=== PATIENT | female | born 1970 | race African-American/Black ===

== ENCOUNTER 2017-12-01 16:41 | Inpatient (IN) | payer OTHER ==
[2017-12-01 17:16] LABS: ADD MAN DIFF? NO
[2017-12-01 17:20] LABS: BASO % 1 % (0-3); EOS # 0.1 x10^3/uL (0.0-0.7); EOS % 2 % (0-3); HEMATOCRIT 42.3 % (36.0-47.0); HEMOGLOBIN 14.2 g/dL (12.0-15.5); LYMPH # 2.6 x10^3/uL (1.0-4.8); LYMPH % 42 % (24-48); MEAN CORPUSCULAR HEMOGLOBIN 31 pg (25-35); MEAN CORPUSCULAR HGB CONC 34 g/dL (31-37); MEAN CORPUSCULAR VOLUME 92 fL (79-100); MONO # 0.3 x10^3/uL (0.0-1.1); MONO % 4 % (0-9); NEUT # 3.2 x10^3uL (1.8-7.7); NEUT % 51 % (31-73); PLATELET COUNT 234 x10^3/uL (140-400); RED BLOOD COUNT 4.58 x10^6/uL (3.50-5.40); RED CELL DISTRIBUTION WIDTH 14.9 % (11.5-14.5); WHITE BLOOD COUNT 6.2 x10^3/uL (4.0-11.0)
[2017-12-01 17:28] LABS: INR 1.1 (0.8-1.1); PROTHROMBIN TIME PATIENT 13.7 SEC (11.7-14.0)
[2017-12-01 17:33] LABS: ANION GAP 9 (6-14); BLOOD UREA NITROGEN 11 mg/dL (7-20); CALCIUM 8.6 mg/dL (8.5-10.1); CARBON DIOXIDE 30 mmol/L (21-32); CHLORIDE 105 mmol/L (98-107); GFR 59.2; GLUCOSE 110 mg/dL (70-99); POTASSIUM 3.4 mmol/L (3.5-5.1); SODIUM 144 mmol/L (136-145)
[2017-12-01 17:40] LABS: ALBUMIN 3.5 g/dL (3.4-5.0); ALK PHOS 102 U/L (46-116); ALT (SGPT) 35 U/L (14-59); AST (SGOT) 21 U/L (15-37); DIRECT BILIRUBIN 0.1 mg/dL (0.0-0.2); LIPASE 105 U/L (73-393); MAGNESIUM 1.9 mg/dL (1.8-2.4); TOTAL BILIRUBIN 0.3 mg/dL (0.2-1.0); TOTAL PROTEIN 7.5 g/dL (6.4-8.2)
[2017-12-01 17:45] LABS: NT-PRO BNP 52 pg/mL (0-124)
[2017-12-01 17:45] LABS: CKMB INDEX 0.4 % (0-4); CKMB MASS 0.9 ng/mL (0.0-3.6); CREATINE KINASE 247 U/L (26-192)
[2017-12-01 17:46] LABS: THYROID STIM HORMONE (TSH) 1.607 uIU/mL (0.358-3.74)
[2017-12-01 17:47] LABS: TROPONINI < 0.017 ng/mL (0.000-0.055)
[2017-12-01 17:50] LABS: BILIRUBIN,URINE NEGATIVE (NEG); CLARITY,URINE CLEAR; COLOR,URINE YELLOW; GLUCOSE,URINE NEGATIVE (NEG); NITRITE,URINE NEGATIVE (NEG); PROTEIN,URINE NEGATIVE (NEG-TRACE); UROBILINOGEN,URINE 0.2 mg/dL (0.2 mg/dL)
[2017-12-01 17:56] LABS: BACTERIA,URINE FEW /HPF (0-FEW); RBC,URINE 0 /HPF (0-2); SQUAMOUS EPITHELIAL CELL,UR MOD /LPF; WBC,URINE 0 /HPF (0-4)
[2017-12-01 18:07] LABS: BARBITURATES NEG (NEG); BENZODIAZEPINES NEG (NEG); CANNABINOIDS NEG (NEG); COCAINE NEG (NEG); METHADONE NEG (NEG); OPIATES POS (NEG); PHENCYCLIDINE NEG (NEG)
[2017-12-01 18:13] LABS: AMPHETAMINE/METHAMPHETAMINE NEG (NEG); ETHANOL, URINE NEG (NEG)
[2017-12-01] MEDS: ONDANSETRON PF 4 MG/2 ML VIAL. IV (19:43)
[2017-12-01] MEDS: MORPHINE SULFATE 2 MG/ML DISP.SYRIN. IV (19:44)
[2017-12-01] MEDS: ASPIRIN 325 MG TABLET PO (19:44)
[2017-12-01] MEDS ORDERED: ZOLPIDEM 5 MG TABLET. (21:00)
[2017-12-01] MEDS: CETIRIZINE HCL 10 MG TABLET. PO (23:58)
[2017-12-01] MEDS: OMEGA-3 FATTY ACIDS/FISH OIL 1,000 MG CAPSULE. PO (23:58)
[2017-12-01] MEDS: CHOLECALCIFEROL (VITAMIN D3) 5,000 UNIT CAPSULE PO (23:58)
[2017-12-01] MEDS: DULoxetine HCL 30 MG CAPSULE.DR PO (23:59)
[2017-12-01] MEDS: LOSARTAN POTASSIUM 50 MG TABLET. PO (23:59)
[2017-12-01] MEDS: ZOLPIDEM 5 MG TABLET. PO (23:59)
[2017-12-01] MEDS: MULTIVITAMIN with MINERAL TABLET. PO (23:59)
[2017-12-01] MEDS: diphenhydrAMINE HCL 25 MG CAPSULE PO (23:59)
[2017-12-02] MEDS: ZOLPIDEM 5 MG TABLET. PO ×3 (00:01→20:41)
[2017-12-02 02:12] LABS: TROPONINI < 0.017 ng/mL (0.000-0.055)
[2017-12-02] MEDS: MORPHINE SULFATE 2 MG/ML DISP.SYRIN. IV ×3 (05:16→15:18)
[2017-12-02 07:16] LABS: ADD MAN DIFF? NO
[2017-12-02 07:22] LABS: BASO % 1 % (0-3); EOS # 0.1 x10^3/uL (0.0-0.7); EOS % 3 % (0-3); HEMATOCRIT 44.1 % (36.0-47.0); HEMOGLOBIN 14.4 g/dL (12.0-15.5); LYMPH # 2.5 x10^3/uL (1.0-4.8); LYMPH % 48 % (24-48); MEAN CORPUSCULAR HEMOGLOBIN 31 pg (25-35); MEAN CORPUSCULAR HGB CONC 33 g/dL (31-37); MEAN CORPUSCULAR VOLUME 94 fL (79-100); MONO # 0.3 x10^3/uL (0.0-1.1); MONO % 6 % (0-9); NEUT # 2.2 x10^3uL (1.8-7.7); NEUT % 43 % (31-73); PLATELET COUNT 221 x10^3/uL (140-400); RED BLOOD COUNT 4.71 x10^6/uL (3.50-5.40); RED CELL DISTRIBUTION WIDTH 14.7 % (11.5-14.5); WHITE BLOOD COUNT 5.2 x10^3/uL (4.0-11.0)
[2017-12-02 07:47] LABS: TROPONINI < 0.017 ng/mL (0.000-0.055)
[2017-12-02] MEDS: traMADol 50 MG TABLET PO ×3 (07:50→20:44)
[2017-12-02] MEDS: hydroCHLOROthiazide 25 MG TABLET PO (07:50)
[2017-12-02 08:26] LABS: ALBUMIN 3.3 g/dL (3.4-5.0); ALBUMIN/GLOBULIN RATIO 0.9 (1.0-1.7); ALK PHOS 98 U/L (46-116); ALT (SGPT) 40 U/L (14-59); ANION GAP 7 (6-14); AST (SGOT) 31 U/L (15-37); BLOOD UREA NITROGEN 14 mg/dL (7-20); BUN/CREATININE RATIO 14 (6-20); CALCIUM 8.5 mg/dL (8.5-10.1); CARBON DIOXIDE 30 mmol/L (21-32); CHLORIDE 107 mmol/L (98-107); GFR 71.6; GLUCOSE 88 mg/dL (70-99); POTASSIUM 4.3 mmol/L (3.5-5.1); SODIUM 144 mmol/L (136-145); TOTAL BILIRUBIN 0.4 mg/dL (0.2-1.0); TOTAL PROTEIN 7.1 g/dL (6.4-8.2)
[2017-12-02] MEDS: FLU VACC QS2017-18 (36MOS+)/PF 0.5 ML SYRINGE. VAX IM (09:00)
[2017-12-02] MEDS: ENOXAPARIN 40 MG/0.4 ML SYRINGE. SQ ×2 (09:00→20:55)
[2017-12-02 11:37] LABS: CHOLESTEROL 194 mg/dL (0-200); HDLC 34 mg/dL (40-60); LDLC 143 mg/dL (0-100); NON-HDL CHOLESTEROL 160 mg/dL (0-129); TRIGLYCERIDES 87 mg/dL (0-150); VLDLC 17 mg/dL (0-40)
[2017-12-02 11:40] LABS: CHOLESTEROL/HDL RATIO 5.7
[2017-12-02] MEDS: OMEGA-3 FATTY ACIDS/FISH OIL 1,000 MG CAPSULE. PO (20:34)
[2017-12-02] MEDS: CETIRIZINE HCL 10 MG TABLET. PO (20:35)
[2017-12-02] MEDS: MULTIVITAMIN with MINERAL TABLET. PO (20:35)
[2017-12-02] MEDS: CHOLECALCIFEROL (VITAMIN D3) 5,000 UNIT CAPSULE PO (20:35)
[2017-12-02] MEDS: diphenhydrAMINE HCL 25 MG CAPSULE PO (20:35)
[2017-12-02] MEDS: DULoxetine HCL 30 MG CAPSULE.DR PO (20:35)
[2017-12-02] MEDS: LOSARTAN POTASSIUM 50 MG TABLET. PO (20:36)
[2017-12-02] MEDS ORDERED: [UNRECOGNIZED DRUG - OTHER] PO (21:00)
[2017-12-02] MEDS ORDERED: ZOLPIDEM 5 MG TABLET. ×2 (21:00)
[2017-12-03] MEDS: HYDROcodone/APAP 7.5/325MG 1 TAB TABLET PO (05:42)
[2017-12-03] MEDS: ENOXAPARIN 40 MG/0.4 ML SYRINGE. SQ (09:00)
[2017-12-03] MEDS: REGADENOSON 0.4 MG/5 ML DISP.SYRIN. IV (09:49)
[2017-12-03] MEDS: hydroCHLOROthiazide 25 MG TABLET PO (12:51)
== END 2017-12-03 17:57 | disposition home or self-care (01) | DRG 313 ==
LOC: ER 16:41 → ED HOLD 18:30 → 5 SOUTH 21:50
DX: R07.89 Other chest pain (principal); E66.01 Morbid (severe) obesity due to excess calories; Z68.41 Body mass index [BMI] 40.0-44.9, adult; E78.5 Hyperlipidemia, unspecified; F17.210 Nicotine dependence, cigarettes, uncomplicated; I10 Essential (primary) hypertension; J45.909 Unspecified asthma, uncomplicated; K21.9 Gastro-esophageal reflux disease without esophagitis; Z82.49 Family history of ischemic heart disease and other diseases of the circulatory system; Z83.3 Family history of diabetes mellitus; Z86.73 Personal history of transient ischemic attack (TIA), and cerebral infarction without residual deficits; Z90.710 Acquired absence of both cervix and uterus; Z90.721 Acquired absence of ovaries, unilateral; F32.9 Major depressive disorder, single episode, unspecified; Z88.8 Allergy status to other drugs, medicaments and biological substances
CPT/HCPCS: 36415; 71045; 78452; 80048; 80053; 80061; 80076; 80307; 81001; 82553; 83690; 83735; 83880; 84443; 84484; 85025; 85610; 93005; 93017; 93306; 96374; 96375; 99285-25; A9500; J2270; J2405; J2785; Q0163

== ENCOUNTER 2018-02-16 01:37 | Emergency (ER) | payer OTHER | END 2018-02-16 03:09 | disposition home or self-care (01) | LOC: ER 01:37 | DX: M54.5 Low back pain (principal); M54.2 Cervicalgia; I10 Essential (primary) hypertension; G89.29 Other chronic pain; G47.00 Insomnia, unspecified; Z90.710 Acquired absence of both cervix and uterus; Z98.51 Tubal ligation status; Z90.721 Acquired absence of ovaries, unilateral; Z88.8 Allergy status to other drugs, medicaments and biological substances | CPT/HCPCS: 99281 ==

== ENCOUNTER → 2018-03-07 | Outpatient (CLI) | payer OTHER ==
[2018-03-07 13:26] LABS: ADD MAN DIFF? NO
[2018-03-07 13:43] LABS: BASO % 1 % (0-3); EOS # 0.2 x10^3/uL (0.0-0.7); EOS % 3 % (0-3); HEMATOCRIT 42.6 % (36.0-47.0); HEMOGLOBIN 14.3 g/dL (12.0-15.5); LYMPH # 2.9 x10^3/uL (1.0-4.8); LYMPH % 39 % (24-48); MEAN CORPUSCULAR HEMOGLOBIN 32 pg (25-35); MEAN CORPUSCULAR HGB CONC 34 g/dL (31-37); MEAN CORPUSCULAR VOLUME 94 fL (79-100); MONO # 0.3 x10^3/uL (0.0-1.1); MONO % 5 % (0-9); NEUT # 3.9 x10^3uL (1.8-7.7); NEUT % 53 % (31-73); PLATELET COUNT 272 x10^3/uL (140-400); RED BLOOD COUNT 4.53 x10^6/uL (3.50-5.40); RED CELL DISTRIBUTION WIDTH 14.1 % (11.5-14.5); WHITE BLOOD COUNT 7.4 x10^3/uL (4.0-11.0)
[2018-03-07 13:49] LABS: ALBUMIN 3.2 g/dL (3.4-5.0); ALBUMIN/GLOBULIN RATIO 0.7 (1.0-1.7); ALK PHOS 111 U/L (46-116); ALT (SGPT) 43 U/L (14-59); ANION GAP 6 (6-14); AST (SGOT) 27 U/L (15-37); BLOOD UREA NITROGEN 11 mg/dL (7-20); BUN/CREATININE RATIO 11 (6-20); CALCIUM 9.1 mg/dL (8.5-10.1); CARBON DIOXIDE 30 mmol/L (21-32); CHLORIDE 103 mmol/L (98-107); CHOLESTEROL 199 mg/dL (0-200); GFR 71.3; GLUCOSE 109 mg/dL (70-99); HDLC 29 mg/dL (40-60); LDLC 129 mg/dL (0-100); NON-HDL CHOLESTEROL 170 mg/dL (0-129); POTASSIUM 3.6 mmol/L (3.5-5.1); SODIUM 139 mmol/L (136-145); TOTAL BILIRUBIN 0.4 mg/dL (0.2-1.0); TOTAL PROTEIN 7.5 g/dL (6.4-8.2); TRIGLYCERIDES 207 mg/dL (0-150); VLDLC 41 mg/dL (0-40)
[2018-03-07 13:52] LABS: CHOLESTEROL/HDL RATIO 6.9
[2018-03-07 14:00] LABS: THYROID STIM HORMONE (TSH) 0.725 uIU/mL (0.358-3.74)
[2018-03-08 01:14] LABS: HEMOGLOBIN A1C 5.6 % (4.8-5.6)
== END | disposition home or self-care (01) ==
LOC: MAMMO 13:11
DX: Z12.31 Encounter for screening mammogram for malignant neoplasm of breast (principal); I10 Essential (primary) hypertension; E78.5 Hyperlipidemia, unspecified; Z87.891 Personal history of nicotine dependence
CPT/HCPCS: 36415; 77067; 80053; 80061; 83036; 84443; 85025